=== PATIENT | female | born 1955 | race Caucasian/White ===

== ENCOUNTER 2017-10-07 09:45 | Emergency (ER) | payer BC ==
--- NOTE | 2017-10-07 10:06 | Emergency Department Record ---
History of Present Illness - General Chief complaint: Eye Problem Stated complaint: DBL VISION Time Seen by Provider: 10/07/17 09:48 Source: Patient, Family Mode of Arrival: Ambulatory Limitations: No limitations - History of Present Illness Initial comments: 62 yo female presents with double vision for about 30 hours. She woke up at 4am on Wednesday with the symptoms. She was last completely normal the night before. She states she saw an eye doctor yesterday and was told her examination was normal. The double vision with both eyes open has worsened. No headaches, dizziness, slurred speech, pain, coordination changes. No history of similar symptoms. No prescription medications. She has not seen a PCP is "years". She does treat with vitamins and supplements. MD chief complaint: Vision change -: Hour(s) (30) Onset Description: Awoke with symptoms Location: Both eyes Place: Home If Injury: None Eye Symptoms: Other (Double vision) Severity: Moderate If Pain, Quality: Other (painless) Associated Symptoms: Other (none) Treatments Prior to Arrival: None - Related Data Home Medications Medication Instructions Recorded Confirmed Last Taken Ascorbic Acid/Ascorbate Sodium 500 mg PO TID 10/07/17 10/07/17 10/06/17 [Vitamin C 500 mg Wafer] Levocarnitine [l-Carnitine] 500 mg PO BID 10/07/17 10/07/17 10/06/17 Magnesium Aspartate HCl [Maginex] 61 mg PO QHS 10/07/17 10/07/17 10/06/17 Valerian Root 100 mg PO BID 10/07/17 10/07/17 10/06/17 Vitamin E Acetate [Vitamin E] 400 unit PO DAILY 10/07/17 10/07/17 10/06/17 Allergies Allergy/AdvReac Type Severity Reaction Status Date / Time Sulfa (Sulfonamide Allergy ITCHING Verified 10/07/17 10:03 Antibiotics) Review of Systems Constitutional: Denies: Chills, Fever, Malaise, Weakness Eyes: Denies: Eye discharge ENT: Denies: Congestion, Throat pain Respiratory: Denies: Cough Cardiovascular: Denies: Chest pain, Syncope Endocrine: Denies: Fatigue Gastrointestinal: Denies: Abdominal pain, Diarrhea, Nausea, Vomiting Genitourinary: Denies: Dysuria, Urgency Musculoskeletal: Denies: Arthralgia, Back pain, Joint swelling, Myalgia Skin: Denies: Bruising, Change in color, Rash Neurological: Reports: Other (double vision). Denies: Abnormal gait, Confusion , Headache, Numbness, Paresthesias, Seizure, Tingling, Tremors, Vertigo, Weakness Psychiatric: Reports: Anxiety (due to double vision) Hematological/Lymphatic: Reports: As per HPI. Denies: Anemia, Blood Clots, Easy bleeding, Easy bruising, Swollen glands Physical Exam - General General Appearance: Alert, Oriented x3, Cooperative, No acute distress Limitations: No limitations - Head Head exam: Normal inspection - Eye Eye exam: Normal appearance, PERRL. negative: Conjunctival injection, EOMI, Nystagmus, Periorbital swelling Pupils: negative: Normal accommodation (the right eye lags slightly midline with accomidation), Irregular, Unequal - ENT ENT exam: Normal exam Ear exam: Normal external inspection Nasal Exam: Normal inspection Mouth exam: Normal external inspection Teeth exam: Normal inspection - Neck Neck exam: Normal inspection, Full ROM. negative: Tenderness, Other (no bruits) - Respiratory Respiratory exam: Normal lung sounds bilaterally. negative: Respiratory distress - Cardiovascular Cardiovascular Exam: Regular rate, Normal rhythm, Normal heart sounds Peripheral Pulses: 2+: Radial (R), Radial (L) - GI/Abdominal GI/Abdominal exam: Soft. negative: Tenderness - Rectal Rectal exam: Deferred - exam: Deferred - Extremities Extremities exam: Normal inspection, Full ROM, Normal capillary refill. negative: Tenderness - Back Back exam: Reports: Normal inspection, Full ROM. Denies: Muscle spasm, Rash noted, Tenderness - Neurological Neurological exam: Alert, CN II-XII intact, Normal gait, Oriented X3, Reflexes normal, Other (normal Rhomberg, Normal FTN, Normal HIREN, Normal gate, Normal tracking. She has double vision with her rightward gaze and midline gaze, she states it resovles with upward, and downward gaze and leftward gaze. No changes in her visual durbin.). negative: Altered, Motor sensory deficit - Psychiatric Psychiatric exam: Normal affect, Normal mood. negative: Agitated, Anxious - Skin Skin exam: Dry, Intact, Normal color, Warm Course - Reevaluation(s) Reevaluation #1: 10/07/17 10:15 The note from the coke drawer was reviewed. 20/20 vision bilateral, no acute findings on examination in the office 3pm 10/07/17 10/07/17 10:29 On recheck the symptoms are still with forward gaze and rightward 10/07/17 10:47 Mild generalized atrophy otherwise negative HCT scan. 10/07/17 10:47 No acute changes on the labs. 10/07/17 10:52 I called [facility] at [facility] to discuss the case with the neurology stroke attending Qian Turcios of neuro-stroke. We discussed the symptoms and CT. He accepts the patient for transfer for stroke work up 10/07/17 11:09 EKG NSR rate 67, intervals normal, axis normal, ST michell. Normal EKG 10/07/17 12:07 The patient and sister request transfer by car. I offered ambulance for safety reasons. She is no showing signs of any worsening and she is safe for transfer by private car with sister driving. She understands the offer for EMS and accepts any risks going by private car. She will go to admitting as a room is available at this time. She was given a transfer packet with CT scan on disc. Medical Decision Making - Lab Data Result diagrams: 10/07/17 10:13 10/07/17 10:13 Disposition Disposition: Transfer Clinical Impression: Double vision Transfer To: [facility] Reason For Transfer: Double Vision Accepting Physician: Tam Time Discussed w/Accepting Physician: 10:57 Condition: (2) Stable Forms: Patient Portal Access Time of Disposition: 10:57 Quality - Quality Measures Quality Measures: N/A - Blood Pressure Screening Does Patient Have Any of the Following: No Blood Pressure Classification: Pre-Hypertensive BP Reading Systolic Measurement: 123 Diastolic Measurement: 77 Screening for High Blood Pressure: < Pre-Hypertensive BP, F/U Documented > [ [id number]] Pre-Hypertensive Follow-up Interventions: Referral to alternative/primary care provider.
[2017-10-07 10:27] LABS: BASO % 0.3 % (0-6); EOS % 0.2 % (0-6); HEMATOCRIT 42.9 % (35.0-47.0); LYMPH % 18.2 % (16-45); MEAN CELL VOLUME 96.8 fl (81-97); MEAN CORPUSCULAR HEMOGLOBIN 31.6 pg (27-33); MEAN CORPUSCULAR HGB CONC 32.6 g/dl (32-36); MEAN PLATELET VOLUME 11.3 fl (7.4-10.4); MONO % 5.3 % (0-9); PLATELET COUNT 187 K/uL (130-400); RED BLOOD COUNT 4.43 M/uL (3.80-5.40); RED CELL DISTRIBUTION WIDTH 12.5 % (11.5-14.5)
[2017-10-07 10:44] LABS: ALB/GLOB RATIO 1.5 (1.1-1.8); ALBUMIN 4.5 g/dL (4.0-5.0); ALKALINE PHOSPHATASE 71 U/L (35-104); ALT/SGPT 22 U/L (<33); AST/SGOT 28 U/L (10.0-35.0); BLOOD UREA NITROGEN 14 mg/dL (8-23); CREATININE 0.5 mg/dL (0.5-0.9); EST GLOMERULAR FILTRATION RATE > 60 mL/min; GLUCOSE,RANDOM 113 mg/dL (74-109); TOTAL PROTEIN 7.6 g/dL (6.6-8.7)
--- NOTE | 2017-10-08 10:50 | CT SCAN REPORT ---
EXAM: EMERGENCY HEAD CT WITHOUT CONTRAST HISTORY: DOUBLE VISION. TECHNIQUE: Axial CT scan of the head was performed without IV contrast. Comparison: None. FINDINGS: No definite acute intracranial hemorrhage identified. No focal mass effect or midline shift apparent. No definite acute infarct or intracranial mass lesion is seen. No depressed calvarial fracture evident. Spina bifida of C1 posteriorly is incidentally noted. If the patient's acute neurologic symptoms persist, a follow-up brain MRI may be useful for further evaluation if not contraindicated. IMPRESSION: MILD GENERALIZED ATROPHY. NO ACUTE INTRACRANIAL HEMORRHAGE OR FOCAL MASS EFFECT EVIDENT. JOB NUMBER: [id number] [facility]
== END 2017-10-07 12:41 | disposition short-term general hospital (02) ==
LOC: ER 09:45
DX: H53.2 Diplopia (principal)
CPT/HCPCS: 70450; 80053; 85025; 93005; 93010; 99284